=== PATIENT | male | born 1965 | race Caucasian/White ===

== ENCOUNTER 2018-08-23 08:02 | Day surgery (SDC) | payer OTHER ==
[~2018-08-23 08:02] MED LIST: ceFAZolin 2 GM in Premix Bag 1 BAG IV SCH
--- NOTE | 2018-08-23 09:11 | PCM.PREANE ---
Preanesthetic Assessment - Anesthesia/Transfusion/Family Hx Anesthesia History: No Prior Anesthesia Family History of Anesthesia Reaction: No Transfusion History: No Prior Transfusion(s) - Review of Systems General: No Symptoms Pulmonary: No Symptoms Cardiovascular: No Symptoms Gastrointestinal: No Symptoms Neurological: No Symptoms Other: Reports: None - Physical Assessment NPO Status Date: 08/22/18 O2 Sat by Pulse Oximetry: 97 Respiratory Rate: 16 Vital Signs: Last Vital Signs Temp 97.3 F 08/23/18 08:47 Pulse 84 08/23/18 08:47 Resp 16 08/23/18 08:47 BP 150/96 H 08/23/18 08:47 Pulse Ox 97 08/23/18 08:47 Height: 6 ft Weight: 97.522 kg ASA Class: 1 Mental Status: Alert & Oriented x3 Airway Class: Mallampati = 1 Dentition: Reports: Normal Dentition ROM/Head Extension: Full Lungs: Clear to Auscultation, Normal Respiratory Effort Cardiovascular: Regular Rate, Regular Rhythm - Allergies Allergies/Adverse Reactions: Allergies Allergy/AdvReac Type Severity Reaction Status Date / Time No Known Allergies Allergy Verified 08/22/18 15:02 - Blood Blood Available: No - Anesthesia Plan Pre-Op Medication Ordered: None - Acknowledgements Anesthesia Type Planned: General Anesthesia Pt an Appropriate Candidate for the Planned Anesthesia: Yes Alternatives and Risks of Anesthesia Discussed w Pt/Guardian: Yes Pt/Guardian Understands and Agrees with Anesthesia Plan: Yes PreAnesthesia Questionnaire - Past Surgical History Head Surgeries/Procedures: Reports: None - SUBSTANCE USE Smoking Status *Q: Never Smoker Recreational Drug Use History: No - HOME MEDS Home Medications: Home Meds . [No Known Home Meds] 08/22/18 [History] - CURRENT (IN HOUSE) MEDS Current Meds: Current Medications Cefazolin Sodium/Dextrose 2 gm (/ Premix) 50 mls @ 100 mls/hr IV ONETIME RAMÓN
[2018-08-23] MEDS ORDERED: Rocuronium 10 MG/ML 10 ML Syringe ONE (11:08)
[2018-08-23] MEDS ORDERED: Ondansetron 4 MG/2 ML SDV ONE (11:10)
[2018-08-23] MEDS ORDERED: Meperidine PF 25 MG/ML Syringe IVPUSH PRN (11:38)
[2018-08-23] MEDS ORDERED: fentaNYL 100 MCG/2 ML SDV IVPUSH PRN (11:39)
[2018-08-23] MEDS ORDERED: Ondansetron 4 MG/2 ML SDV IVPUSH PRN (11:40)
--- NOTE | 2018-08-23 12:01 | PCM.OPNOTE ---
- General Post-Op/Procedure Note Date of Surgery/Procedure: 08/23/18 Operative Procedure(s): right distal biceps repair Findings: tendon scarred down above vessels Pre Op Diagnosis: right distal biceps rupture Post-Op Diagnosis: same Anesthesia Technique: General ET Tube Primary Surgeon: Aravind Pérez Mai [employer] Software Verification Engineer: Carlotta Klein Pathology: none EBL in mLs: 20 Complications: none Condition: Good
[2018-08-23] MEDS: fentaNYL 100 MCG/2 ML SDV IVPUSH PRN ×2 (12:31→12:48)
--- NOTE | 2018-08-23 13:00 | PCM.POSTAN ---
POST ANESTHESIA ASSESSMENT - MENTAL STATUS Mental Status: Alert, Oriented - RESPIRATORY Respiratory Status: Respiratory Rate WNL, Airway Patent, O2 Saturation Stable - CARDIOVASCULAR CV Status: Pulse Rate WNL, Blood Pressure Stable - GASTROINTESTINAL GI Status: No Symptoms - POST OP HYDRATION Hydration Status: Adequate & Stable
--- NOTE | 2018-08-23 13:28 | PCM48HPAN ---
Post Anesthesia Note - EVALUATION WITHIN 48HRS OF ANESTHETIC Vital Signs in Normal Range: Yes Patient Participated in Evaluation: Yes Respiratory Function Stable: Yes Airway Patent: Yes Cardiovascular Function Stable: Yes Hydration Status Stable: Yes Pain Control Satisfactory: Yes Nausea and Vomiting Control Satisfactory: Yes Mental Status Recovered: Yes Resp Rate: 9
--- NOTE | 2018-08-24 11:35 | OR ---
SURGEON: Aravind Santiago MD DATE OF PROCEDURE: 08/23/2018 BENEFITS CONSULTING ANALYST: Carlotta Klein PA-C PREOPERATIVE DIAGNOSIS: Right distal biceps rupture. POSTOPERATIVE DIAGNOSIS: Right distal biceps rupture. OPERATION PERFORMED: Right distal biceps repair. ANESTHESIA: General. COMPLICATIONS: None. ESTIMATED BLOOD LOSS: 20 mL. SPECIMENS: None. TOURNIQUET TIME: 40 minutes. IMPLANTS: [employer] 2.9 Jugger[employer] distal biceps repair kit. INDICATIONS: The patient is a 53-year-old male who fell 2 weeks ago suffering a distal biceps rupture. MRI confirms retraction. Due to continued pain, weakness down that arm, he wished to undergo the repair. He understands the risks, benefits, alternatives, and complications of the procedure which include, but no limited to, infection, neurovascular injury, lateral antebrachial cutaneous nerve dysesthesia, rerupture, need for postoperative rehab protocol and he wished to proceed. DESCRIPTION OF PROCEDURE: The patient was seen in the preoperative area. Operative extremity was marked with the patient. He was transferred to operating room and placed supine on the operating room table. General anesthesia was induced. Endotracheal tube was placed. He received preop antibiotics of Ancef. A well-padded upper arm tourniquet was placed. Right arm was prepped and draped in sterile fashion using alcohol, followed by ChloraPrep. A formal time-out was taken, identifying the correct patient, procedure, and extremity. Limb was exsanguinated with an Esmarch, pneumatic tourniquet was inflated to 200 mmHg. A 3.5 cm incision starting about 1 cm distal to the flexion crease overlying the radius was made. Dissection was carried down through to the subcutaneous tissues. Hemostasis was obtained. The fascia was opened. There was noted to be a large cephalic vein was forking and had some branches in between two large veins were divided. The blunt dissection was performed down to the radial tuberosity where the tendon was found to have been pulled off and there were adhesions and scarring in this area. This was debrided with a rongeur taking care to protect all neurovascular structures with gentle retraction. The tendon was not readily found. There was a dense amount of scar tissue directly above the vessels and this was gently dissected through and it was thought to be the biceps tendon, but sincerely, there was no retraction. A longitudinal incision about 4 to 5 cm above the flexion crease was made. Dissection was carried down through to the subcutaneous tissues. The biceps muscle was found. It able to pull on it and thus confirmed that the scar tissue was the tendon. This was then bluntly dissected through and it was dissected off the vessels anteriorly and the tendon was pulled up. This was extremely scarred and degenerative. This was debulked to about a size about 8 to 9 mm and pulling on it confirmed the biceps tendon. Neurovascular structures were protected throughout the case. We started distally at the area of normal neurovascular bundle and going proximally. The guidewire was then placed in the radial tuberosity with the protection device. It was over-reamed and then the Endobutton was placed across the both cortices and pulled on. This had excellent fixation. Then, the tendon was whipstitched proximally going distally. The blue suture on the fixation device was wrapped around and it was proximally about 3 cm and tied down. This had excellent fixation on the device and the fixation was toggled, pulling the tendon down into the bicipital tuberosity and had excellent fixation. The wound was then thoroughly irrigated. We also noted that in order to dissect the tendons off before dissection an S-type incision was performed proximally going transversely across the elbow flexion crease going ulnarly and then proximally several centimeters in order to expose the veins in the scar tissue in the anteriorly. The wound was then thoroughly irrigated, the incisions were closed with 3-0 Vicryl and nylon. Xeroform sterile dressing applied. The patient was extubated in the operating room, transferred to the recovery room in stable condition. Sponge and needle counts were correct at the end of the case. He will be kept in an elbow brace with no supination or extension. He will return to clinic in 2 weeks. BHAVESH JONES /[id number]
== END 2018-08-23 14:42 | disposition home or self-care (01) ==
LOC: MW.SDS 08:02
PROVIDERS: ATTEND Orthopaedic Surgery
DX: S46.211A Strain of muscle, fascia and tendon of other parts of biceps, right arm, initial encounter (principal); S59.901A Unspecified injury of right elbow, initial encounter; X58.XXXA Exposure to other specified factors, initial encounter
CPT/HCPCS: 24341; C1713; J2405; J3010